=== PATIENT | female | born 1970 | race Asian ===

== ENCOUNTER 2018-01-15 13:10 | Outpatient (CLI) | payer BC | END 2018-01-15 13:11 | disposition home or self-care (01) | LOC: BICMAMMO 13:10 | PROVIDERS: ATTEND Specialist | DX: Z12.31 Encounter for screening mammogram for malignant neoplasm of breast (principal); Z80.3 Family history of malignant neoplasm of breast; Z98.82 Breast implant status | CPT/HCPCS: 77063; 77067 ==

== ENCOUNTER 2018-02-18 09:51 | Outpatient (CLI) | payer BC ==
--- NOTE | 2018-02-18 10:42 | RAD ---
RIGHT KNEE FOUR VIEWS: History: Knee pain. FINDINGS: The joint spaces are preserved. No evidence of fracture. No evidence of degenerative change. No evide nce of joint effusion. IMPRESSION: Unremarkable right knee. POS: [facility]
--- NOTE | 2018-02-18 10:43 | RAD ---
LEFT KNEE FOUR VIEWS: History: Knee pain. FINDINGS: The joint spaces are preserved. There is no evidence of fracture. No evidence of joint effusion. No s ignificant degenerative change. IMPRESSION: No acute finding. POS: [facility]
--- NOTE | 2018-02-18 11:56 | BD ---
DEXA BONE DENSITY EXAM: HISTORY: A 47-year-old female for screening. COMPARISON: None. FINDINGS: Lumbar Spine: BMD (g/cm2) L1 1.061 T-Score: 0.6 L2 1.059 T-Score: 0.3 L3 1.110 T-Score: 0.2 L4 1.104 T-Score: 0.4 L1-L4 1.086 T-Score: 0.4 Femoral Neck: 0.845 T-Score: 0.0 Total Femur: 1.005 T-Score: 0.5 Impression: Normal bone mineral density. This patient has a 10-year WHO fracture risk for a major osteoporotic f racture of 3.1% of a hip fracture 0.1%. POS: [facility]
== END 2018-02-18 09:52 | disposition home or self-care (01) ==
LOC: BICRAD 09:51
PROVIDERS: ATTEND Specialist
DX: M25.561 Pain in right knee (principal); M25.562 Pain in left knee
CPT/HCPCS: 77080

== ENCOUNTER 2019-01-29 08:27 | Outpatient (CLI) | payer BC ==
--- NOTE | 2019-01-29 09:51 | MMO ---
Bilateral MAMMO Bilat Screen [facility]. CLINICAL HISTORY: Patient is 48 years old and is seen for screening. The patient has the following family history of breast cancer: maternal aunt. The patient has no personal history of cancer. The patient has a history of bilateral Implants in 2002. VIEWS: The views performed were: bilateral craniocaudal; bilateral mediolateral oblique; and bilateral Implant displaced with tomosynthesis. FILMS COMPARED: The present examination has been compared to prior imaging studies performed at [facility] on 01/12/2017 and 01/15/2018. This study has been interpreted with the assistance of computer-aided detection. MAMMOGRAM FINDINGS: There are scattered fibroglandular densities. There are no suspicious masses, suspicious calcifications, or new areas of architectural distortion. Normal implants are present. IMPRESSION: THERE IS NO MAMMOGRAPHIC EVIDENCE OF MALIGNANCY. A ROUTINE FOLLOW-UP MAMMOGRAM IN 1 YEAR IS RECOMMENDED. THE RESULTS OF THIS EXAM WERE SENT TO THE PATIENT. ACR BI-RADS Category 1 - Negative MAMMOGRAPHY NOTE: 1. A negative mammogram report should not delay a biopsy if a dominant of clinically suspicious mass is present. 2. Approximately 10% to 15% of breast cancers are not detected by mammography. 3. Adenosis and dense breasts may obscure an underlying neoplasm. Reported by: JOSE LUIS CR MD Electonically Signed: [id number]
== END 2019-01-29 08:28 | disposition home or self-care (01) ==
LOC: BICMAMMO 08:27
PROVIDERS: ATTEND Specialist
DX: Z12.31 Encounter for screening mammogram for malignant neoplasm of breast (principal); Z80.3 Family history of malignant neoplasm of breast; Z98.82 Breast implant status
CPT/HCPCS: 77063; 77067

== ENCOUNTER 2020-02-02 08:08 | Outpatient (CLI) | payer BC ==
--- NOTE | 2020-02-02 08:37 | MMO ---
Bilateral MAMMO Bilat Screen [facility]. CLINICAL HISTORY: Patient is 49 years old and is seen for screening. The patient has the following family history of breast cancer: maternal aunt. The patient has no personal history of cancer. The patient has a history of bilateral Implants in 2002. VIEWS: The views performed were: bilateral craniocaudal with tomosynthesis and bilateral mediolateral oblique with tomosynthesis. FILMS COMPARED: The present examination has been compared to prior imaging studies performed at [facility] on 01/12/2017, 01/15/2018 and 01/29/2019. This study has been interpreted with the assistance of computer-aided detection. MAMMOGRAM FINDINGS: There are scattered fibroglandular densities. There are no suspicious masses, suspicious calcifications, or new areas of architectural distortion. Bilateral implants are stable. IMPRESSION: THERE IS NO MAMMOGRAPHIC EVIDENCE OF MALIGNANCY. A ROUTINE FOLLOW-UP MAMMOGRAM IN 1 YEAR IS RECOMMENDED. THE RESULTS OF THIS EXAM WERE SENT TO THE PATIENT. ACR BI-RADS Category 1 - Negative MAMMOGRAPHY NOTE: 1. A negative mammogram report should not delay a biopsy if a dominant of clinically suspicious mass is present. 2. Approximately 10% to 15% of breast cancers are not detected by mammography. 3. Adenosis and dense breasts may obscure an underlying neoplasm. Reported by: JOSE LUIS CR MD Electonically Signed: [id number]
== END 2020-02-02 08:09 | disposition home or self-care (01) ==
LOC: BICMAMMO 08:08
PROVIDERS: ATTEND Specialist
DX: Z12.31 Encounter for screening mammogram for malignant neoplasm of breast (principal); Z80.3 Family history of malignant neoplasm of breast; Z91.89 Other specified personal risk factors, not elsewhere classified
CPT/HCPCS: 77063; 77067

== ENCOUNTER 2021-02-07 07:55 | Outpatient (CLI) | payer BC | END 2021-02-07 07:56 | disposition home or self-care (01) | LOC: BICMAMMO 07:55 | PROVIDERS: ATTEND Specialist | DX: Z12.31 Encounter for screening mammogram for malignant neoplasm of breast (principal); Z80.3 Family history of malignant neoplasm of breast; Z98.82 Breast implant status | CPT/HCPCS: 77063; 77067 ==

== ENCOUNTER 2021-02-25 07:39 | Outpatient (CLI) | payer BC | END 2021-02-25 07:40 | disposition home or self-care (01) | LOC: SCSRAD 07:39 | PROVIDERS: ATTEND Specialist | DX: R07.9 Chest pain, unspecified (principal) | CPT/HCPCS: 71046 ==

== ENCOUNTER 2022-02-08 15:10 | Outpatient (CLI) | payer BC | END 2022-02-08 15:11 | disposition home or self-care (01) | LOC: BICMAMMO 15:10 | PROVIDERS: ATTEND Specialist | DX: Z12.31 Encounter for screening mammogram for malignant neoplasm of breast (principal); Z80.3 Family history of malignant neoplasm of breast; Z98.82 Breast implant status | CPT/HCPCS: 77063; 77067 ==

== ENCOUNTER 2022-12-07 15:04 | Outpatient (CLI) | payer BC | END 2022-12-07 15:05 | disposition home or self-care (01) | LOC: SCSRAD 15:04 | PROVIDERS: ATTEND Specialist | DX: M25.561 Pain in right knee (principal) ==

== ENCOUNTER 2022-12-12 14:09 | Outpatient (CLI) | payer BC | END 2022-12-12 14:10 | disposition home or self-care (01) | LOC: BICMAMMO 14:09 | PROVIDERS: ATTEND Specialist | DX: Z13.820 Encounter for screening for osteoporosis (principal); M85.9 Disorder of bone density and structure, unspecified | CPT/HCPCS: 77080 ==

== ENCOUNTER 2023-04-11 15:51 | Outpatient (CLI) | payer BC | END 2023-04-11 15:52 | disposition home or self-care (01) | LOC: SCSRAD 15:51 | PROVIDERS: ATTEND Specialist | DX: M25.552 Pain in left hip (principal) ==

== ENCOUNTER 2023-07-19 13:17 | Outpatient (CLI) | payer BC | END 2023-07-19 13:18 | disposition home or self-care (01) | LOC: SCSRAD 13:17 | PROVIDERS: ATTEND Surgery | DX: M51.36 Other intervertebral disc degeneration, lumbar region (principal); M50.30 Other cervical disc degeneration, unspecified cervical region; M47.812 Spondylosis without myelopathy or radiculopathy, cervical region; M47.816 Spondylosis without myelopathy or radiculopathy, lumbar region | CPT/HCPCS: 72052; 72120 ==

== ENCOUNTER 2024-02-11 12:45 | Outpatient (CLI) | payer BC | END 2024-02-11 12:46 | disposition home or self-care (01) | LOC: BICMAMMO 12:45 | PROVIDERS: ATTEND Specialist | DX: Z12.31 Encounter for screening mammogram for malignant neoplasm of breast (principal); Z98.82 Breast implant status | CPT/HCPCS: 77063; 77067 ==